=== PATIENT | male | born 1995 | race American Indian/Alaskan Native ===

== ENCOUNTER 2017-12-14 13:33 | Emergency (ER) | payer SELFPAY ==
[2017-12-14 13:44] VITALS: BP 130/76
[2017-12-14] MEDS ORDERED: XYLOCAINE 1% MPF 5 mL INFILTRATI ONE (14:17)
[2017-12-14] MEDS ORDERED: ZITHROMAX PO ONE (14:17)
[2017-12-14] MEDS ORDERED: MOTRIN PO ONE (14:17)
[2017-12-14] MEDS ORDERED: ROCEPHIN IM ONE (14:17)
--- NOTE | 2017-12-14 14:18 | Emergency Department Report ---
ED ENT HPI - General Chief complaint: Urogenital-Male Stated complaint: STD TEST Time Seen by Provider: 12/14/17 14:03 Source: patient Mode of arrival: Ambulatory Limitations: No Limitations - History of Present Illness MD complaint: sore throat - Related Data Previous Rx's Medication Instructions Recorded Last Taken Type Amoxicillin/K Clav Tab [Augmentin 1 tab PO Q12HR #14 tab 12/14/17 Unknown Rx 875 mg] Dextromethorphan/Benzocaine 1 each PO Q4H PRN #1 lozenge 12/14/17 Unknown Rx [Cepacol Sorethroat-Cough Param] Ibuprofen [Motrin] 800 mg PO Q8HR PRN #15 tablet 12/14/17 Unknown Rx Allergies Allergy/AdvReac Type Severity Reaction Status Date / Time No Known Allergies Allergy Unverified 12/14/17 13:41 ED Dental HPI - General Chief complaint: Urogenital-Male Stated complaint: STD TEST Time Seen by Provider: 12/14/17 14:03 Source: patient Mode of arrival: Ambulatory Limitations: No Limitations - Related Data Previous Rx's Medication Instructions Recorded Last Taken Type Amoxicillin/K Clav Tab [Augmentin 1 tab PO Q12HR #14 tab 12/14/17 Unknown Rx 875 mg] Dextromethorphan/Benzocaine 1 each PO Q4H PRN #1 lozenge 12/14/17 Unknown Rx [Cepacol Sorethroat-Cough Param] Ibuprofen [Motrin] 800 mg PO Q8HR PRN #15 tablet 12/14/17 Unknown Rx Allergies Allergy/AdvReac Type Severity Reaction Status Date / Time No Known Allergies Allergy Unverified 12/14/17 13:41 ED Review of Systems ROS: Stated complaint: STD TEST Other details as noted in HPI ED Past Medical Hx - Past Medical History Previous Medical History?: No - Surgical History Past Surgical History?: No - Social History Smoking Status: Never Smoker Substance Use Type: None - Medications Home Medications: Home Medications Medication Instructions Recorded Confirmed Last Taken Type Amoxicillin/K Clav Tab [Augmentin 1 tab PO Q12HR #14 tab 12/14/17 Unknown Rx 875 mg] Dextromethorphan/Benzocaine 1 each PO Q4H PRN #1 lozenge 12/14/17 Unknown Rx [Cepacol Sorethroat-Cough Param] Ibuprofen [Motrin] 800 mg PO Q8HR PRN #15 tablet 12/14/17 Unknown Rx ED Physical Exam - General Limitations: No Limitations ED Course Vital Signs 12/14/17 12/14/17 13:41 14:53 Temperature 97.9 F Pulse Rate 61 Respiratory 18 20 Rate Blood Pressure 130/76 O2 Sat by Pulse 100 Oximetry Critical care attestation.: If time is entered above; I have spent that time in minutes in the direct care of this critically ill patient, excluding procedure time. ED Disposition Clinical Impression: Sore throat, STD exposure Disposition: DC-01 TO HOME OR SELFCARE Is pt being admited?: No Does the pt Need Aspirin: No Condition: Stable Instructions: Safe Sex (ED), Sexually Transmitted Diseases (ED) Prescriptions: Amoxicillin/K Clav Tab [Augmentin 875 mg] 1 tab PO Q12HR #14 tab Dextromethorphan/Benzocaine [Cepacol Sorethroat-Cough Param] 1 each PO Q4H PRN #1 lozenge PRN Reason: Sore Throat Ibuprofen [Motrin] 800 mg PO Q8HR PRN #15 tablet PRN Reason: Pain Referrals: [facility] [Provider Group] - 3-5 Days Time of Disposition: 14:54
== END 2017-12-14 15:07 | disposition home or self-care (01) ==
LOC: ED 13:33
DX: R07.0 Pain in throat (principal); Z20.2 Contact with and (suspected) exposure to infections with a predominantly sexual mode of transmission
CPT/HCPCS: 87116; 87430; 96372; 99283; J0696

== ENCOUNTER 2021-01-23 04:13 | Emergency (ER) | payer SELFPAY | END 2021-01-23 04:15 | disposition left against medical advice (07) | LOC: ED 04:13 ==